=== PATIENT | male | born 1995 | race Hispanic/Latino ===

== ENCOUNTER → 2017-11-04 | Outpatient (CLI) | payer OTHER ==
[~2017-11-04] MED LIST: GADOBENATE DIMEGLUMINE 0 ML IV ONE; GADOBENATE DIMEGLUMINE 1 ML IV ONE
--- NOTE | 2017-11-05 04:31 | Diagnostic Imaging Report ---
History: Visual disturbances Comparison studies: None Technique: Pre-contrast: Sagittal T2; axial T1-IR, MPGR, DWI, T2 FLAIR Post-contrast: axial and coronal T1. Intravenous contrast: 22cc of Multihance Findings: Scalp: No abnormal signal. No masses. Bone marrow: Normal in signal intensity. Brain sulci: Appropriate for age. Ventricles: Normal in size . No hydrocephalus. Extra-axial: No masses, fluid collections or hemorrhage. Parenchyma: No abnormal signal intensities. No masses, hemorrhage, acute or chronic vascular insults. No enhancing abnormalities. Suprasellar region: No abnormalities. Craniocervical junction: No abnormalities. Patent foramen magnum. No Chiari one malformation.. Vessels: Normal flow-voids in the arteries and sinuses. Incidental findings: Nonspecific mucosal thickening at them paranasal sinuses. Mucosal thickening at the maxillary sinuses. IMPRESSION: 1. No intracranial abnormality. 2. Acute on chronic sinusitis Signed by: DR Alireza Willett M.D. on 11/04/2017 11:44 PM
== END ==
LOC: MRI 16:38
PROVIDERS: ATTEND Family Medicine
DX: H53.9 Unspecified visual disturbance (principal)
CPT/HCPCS: 70553